=== PATIENT | female | born 1960 | race Caucasian/White ===

== ENCOUNTER 2017-12-20 12:20 | Emergency (ER) | payer MEDICAID ==
[~2017-12-20] VITALS: Ht 167.6 cm; Wt 72.0 kg
[2017-12-20 12:29] VITALS: BP 134/92
[2017-12-20] MEDS ORDERED: HYDROcodone/APAP 5/325 TABLET ONE ×2 (12:54→14:26)
[2017-12-20] MEDS ORDERED: HYDROcodone/APAP 5/325 TABLET PO ONE ×2 (13:00→14:30)
== END 2017-12-20 14:53 | disposition home or self-care (01) ==
LOC: ED 13:41
DX: S52.122A Displaced fracture of head of left radius, initial encounter for closed fracture (principal); S63.502A Unspecified sprain of left wrist, initial encounter; S63.501A Unspecified sprain of right wrist, initial encounter; S93.402A Sprain of unspecified ligament of left ankle, initial encounter; S60.222A Contusion of left hand, initial encounter; S60.221A Contusion of right hand, initial encounter; S80.02XA Contusion of left knee, initial encounter; F17.210 Nicotine dependence, cigarettes, uncomplicated; W18.39XA Other fall on same level, initial encounter; Y93.89 Activity, other specified; Y92.414 Local residential or business street as the place of occurrence of the external cause; Y99.8 Other external cause status
CPT/HCPCS: 29105; 99284

== ENCOUNTER 2018-01-20 13:24 | Emergency (ER) | payer MEDICAID ==
[~2018-01-20] VITALS: Ht 167.6 cm; Wt 88.6 kg
[2018-01-20 13:45] VITALS: BP 117/79
[2018-01-20] MEDS ORDERED: LIDOCAINE-MPF 1%, 5ML INFIL ONE (14:00)
[2018-01-20] MEDS ORDERED: LIDOCAINE-MPF 2%, 2ML ONE (14:08)
== END 2018-01-20 15:06 | disposition home or self-care (01) ==
LOC: ED 14:15
DX: L60.0 Ingrowing nail (principal); F17.200 Nicotine dependence, unspecified, uncomplicated
CPT/HCPCS: 11730; 99283

== ENCOUNTER 2018-03-24 19:42 | Emergency (ER) | payer MEDICAID ==
[~2018-03-24] VITALS: Ht 167.6 cm; Wt 87.6 kg
[2018-03-24 19:48] VITALS: BP 163/96
[2018-03-24 20:26] LABS: BASOPHILS # (AUTO) 0.07 x10^3/uL (0-0.1); BASOPHILS % (AUTO) 1 % (0-1); EOSINOPHILS % (AUTO) 1 % (1-7); LYMPHOCYTES # (AUTO) 3.85 x10^3/uL (1-3.4); LYMPHOCYTES % (AUTO) 36 % (22-44); MD NO; MEAN CORPUSCULAR HEMOGLOBIN 30.2 pg (27.0-34.8); MEAN CORPUSCULAR HGB CONC 33.7 g/dL (32.4-35.8); MEAN CORPUSCULAR VOLUME 89.5 fL (80-100); MEAN PLATELET VOLUME 7.2 fL (7.4-10.4); MONOCYTES # (AUTO) 0.36 x10^3/uL (0.2-0.8); MONOCYTES % (AUTO) 3 % (2-9); NEUTROPHILS # (AUTO) 6.31 x10^3/uL (1.8-6.8); NEUTROPHILS % (AUTO) 59 % (42-75); PLATELET COUNT 295 x10^3/uL (130-400); RED BLOOD COUNT 4.76 x10^6/uL (3.82-5.3); RED CELL DISTRIBUTION WIDTH 13.4 % (9.6-15.2)
[2018-03-24] MEDS ORDERED: PROCHLORPERAZINE 5 MG/ML, 2ML IM ONE (20:30)
[2018-03-24] MEDS ORDERED: KETOROLAC 30 MG/1 ML IM ONE (20:30)
[2018-03-24 20:37] LABS: ALBUMIN 3.7 g/dL (3.4-5.0); ANION GAP 7 mmol/L (5-15); CALCIUM 9.2 mg/dL (8.5-10.1); CHLORIDE 109 mmol/L (98-107)
[2018-03-24] MEDS ORDERED: KETOROLAC 30 MG/1 ML ONE (20:37)
[2018-03-24] MEDS ORDERED: PROCHLORPERAZINE 5 MG/ML, 2ML ONE (20:37)
[2018-03-24 20:41] LABS: ALANINE AMINOTRANSFERASE 21 U/L (12-78); ALKALINE PHOSPHATASE 84 U/L (45-117); BILIRUBIN,TOTAL 0.2 mg/dL (0.2-1.0); CREATININE 0.77 mg/dL (0.55-1.02); TOTAL PROTEIN 8.8 g/dL (6.4-8.2)
== END 2018-03-24 21:14 | disposition home or self-care (01) ==
LOC: ED 21:07
DX: R51 Headache (principal); F17.210 Nicotine dependence, cigarettes, uncomplicated
CPT/HCPCS: 36415; 70450; 71045; 80053; 85025; 93005; 96372; 99284; J0780; J1885